=== PATIENT | female | born 1980 | race Caucasian/White ===

== ENCOUNTER 2016-09-23 10:20 | Emergency (ER) | payer OTHER ==
[~2016-09-23 10:20] MED LIST: AMBIEN10 MG PO; AZO; BACTRIM DS TABL1 TAB PO; BIRTH CONTROL; BIRTH CONTROL PILL; BUSPAR15 M2 DOB; CELEXA PO; FLEXERIL PO; IRON1 TA1 PO; LORTAB 5/500 TA1 TA2 PO; MOTRIN400 MG PO; PREDNISONE PO; PRENATAL1 TA1 PO; PYRIDIUM PO; TOPAMAX50 MG PO; TYLENOL #3; TYLENOL #3 PO; VOLTAREN75 MG PO; WELLBUTRIN PO; ZOFRAN ODT4 MG PO; ZOLOFT100 MG PO
[2016-09-23 10:30] LABS: URINE SOURCE CLEAN CATCH
[2016-09-23 10:33] LABS: URINE APPEARANCE CLEAR; URINE BILIRUBIN NEG (NEG); URINE BLOOD NEG (NEG); URINE COLOR YELLOW; URINE GLUCOSE NEG (NORM); URINE KETONE NEG (NEG); URINE LEUKOCYTE ESTERASE NEG (NEG); URINE NITRATE NEG (NEG); URINE PROTEIN NEG (NEG); URINE SPECIFIC GRAVITY 1.025 (1.003-1.035); URINE UROBILINOGEN 0.2 MG/DL (NORM)
[2016-09-23 10:34] LABS: MICRO INDICATED? NO
== END 2016-09-23 11:24 | disposition home or self-care (01) ==
LOC: SED 10:20
PROVIDERS: Emergency Medicine
DX: N83.209 Unspecified ovarian cyst, unspecified side (principal); R10.9 Unspecified abdominal pain; F41.9 Anxiety disorder, unspecified; Z98.51 Tubal ligation status
CPT/HCPCS: 81003; 84703; 96372; 99284; J1885